=== PATIENT | male | born 1940 | race Caucasian/White ===

== ENCOUNTER 2017-02-12 05:30 | Day surgery (SDC) | payer OTHER ==
[~2017-02-12] VITALS: Ht 190.5 cm; Wt 110.2 kg
[~2017-02-12 05:30] MED LIST: FLEC50TA2 PO; LISI-217 PO; VERA120C2 PO; WARF3TAB PO
[2017-02-12] MEDS ORDERED: SUCCINYLCHOLINE CHLORIDE 20 MG/ML(QUELICIN) IVP ONE (05:31)
[2017-02-12] MEDS ORDERED: MIDAZOLAM HCL 5 MG/ML VIAL (VERSED) IV ONE (05:31)
[2017-02-12] MEDS ORDERED: ROCURONIUM BROMIDE 10 MG/ML (ZEMURON) IV ONE (05:31)
[2017-02-12] MEDS ORDERED: NS IRRIG SOLN 1000 ML IR ONE (05:31)
[2017-02-12] MEDS ORDERED: PROPOFOL 200MG/ 20ML VIAL (DIPRIVAN) IV ONE (05:31)
[2017-02-12] MEDS ORDERED: LR 1,000 ML IV.SOLN IV ONE (05:31)
[2017-02-12] MEDS ORDERED: WATER FOR IRRIGATION,STERILE 1,000 ML IRRIG.SOLN IR ONE (05:31)
[2017-02-12] MEDS ORDERED: SEVOFLURANE 15 MIN GAS INH ONE (05:31)
[2017-02-12] MEDS ORDERED: ONDANSETRON HCL 4 MG/2 ML VIAL IVP ONE (05:31)
[2017-02-12] MEDS ORDERED: GLYCOPYRROLATE 0.2 MG/ML VIAL IJ ONE (05:31)
[2017-02-12] MEDS ORDERED: DEXAMETHASONE SOD PHOSPHATE 4 MG/ML VIAL IVP ONE (05:31)
[2017-02-12] MEDS ORDERED: ePHEDrine sulfate 50 MG/ML VIAL IVP PRN (08:30)
[2017-02-12] MEDS ORDERED: ONDANSETRON HCL 4 MG/2 ML VIAL IVP PRN ×2 (08:30)
[2017-02-12] MEDS ORDERED: KETOROLAC TROMETHAMINE 30 MG VIAL IM PRN (08:30)
[2017-02-12] MEDS ORDERED: NALOXONE HCL 0.4 MG/ML AMP (NARCAN) IVP PRN (08:30)
[2017-02-12] MEDS ORDERED: fentaNYL CITRATE/PF 100 MCG/2 ML AMP IVP PRN (08:30)
[2017-02-12] MEDS ORDERED: NALBUPHINE HCL 10 MG/ML AMP IVP PRN (08:30)
[2017-02-12] MEDS ORDERED: DIPHENHYDRAMINE INJ 50 MG/ML VIAL IVP PRN (08:30)
[2017-02-12] MEDS ORDERED: LR 1,000 ML IV ONE (08:30)
[2017-02-12] MEDS ORDERED: ACETAMINOPHEN 500 MG TABLET PO PRN (10:00)
[2017-02-12] MEDS ORDERED: ACETAMINOPHEN/CODEINE 300 MG-30 MG TABLET PO PRN (10:00)
[2017-02-12 11:38] VITALS: BP_SYST 108
== END 2017-02-12 13:20 | disposition home or self-care (01) ==
LOC: SMU 05:30 → SDS 05:30
PROVIDERS: ATTEND Otolaryngology
DX: D14.1 Benign neoplasm of larynx (principal); J38.01 Paralysis of vocal cords and larynx, unilateral; I48.91 Unspecified atrial fibrillation; I10 Essential (primary) hypertension; Z90.49 Acquired absence of other specified parts of digestive tract; Z98.890 Other specified postprocedural states; Z88.8 Allergy status to other drugs, medicaments and biological substances; Z87.891 Personal history of nicotine dependence; Z68.32 Body mass index [BMI] 32.0-32.9, adult; J44.9 Chronic obstructive pulmonary disease, unspecified
CPT/HCPCS: 31536; 43191; 88305; 88331; J7120; J0330; J1100; J2250; J2405; J2704; J3490

== ENCOUNTER 2017-02-16 00:14 | Inpatient (IN) | payer OTHER ==
[2017-02-16] VITALS (8 sets, daily range): BP systolic 101–135
[~2017-02-16] VITALS: Ht 193 cm; Wt 114.3 kg
[2017-02-16] MEDS ORDERED: NACL 0.9% 1,000 ML IV ONE (00:44)
[2017-02-16] MEDS ORDERED: LACTULOSE 20 GM/30 ML UDC PO ONE (00:45)
[2017-02-16 01:28] LABS: ANION GAP 12 (5-15); CALCIUM 8.5 mg/dL (8.4-11.0); CHLORIDE 102 mmol/L (98-107); CREATININE 0.97 mg/dL (0.55-1.30); GLUCOSE 121 mg/dL (70-99); POTASSIUM 3.3 mmol/L (3.5-5.1); SODIUM SERUM 138 mmol/L (136-145); UREA NITROGEN, BLOOD 20 mg/dL (8-21)
[2017-02-16 01:31] LABS: BASOPHILS # (AUTO) 0.1 K/uL (0.0-0.2); BASOPHILS % (AUTO) 0.9 % (0.0-2.0); EOSINOPHILS # (AUTO) 0.1 K/uL (0.0-0.4); EOSINOPHILS % (AUTO) 0.9 % (0.0-4.0); HEMATOCRIT 38.3 % (36-54); HEMOGLOBIN 12.9 g/dL (14.0-18.0); LYMPHOCYTES # (AUTO) 0.9 K/uL (1.0-5.5); LYMPHOCYTES % (AUTO) 8.2 % (20.5-51.5); MEAN CORPUSCULAR HEMOGLOBIN 33 pg (27-31); MEAN CORPUSCULAR HGB CONC 34 % (32-36); MEAN CORPUSCULAR VOLUME 99 fL (79.0-98.0); MONOCYTES # (AUTO) 1.1 K/uL (0.0-1.0); MONOCYTES % (AUTO) 10.7 % (1.7-9.3); NEUTROPHILS # (AUTO) 8.2 K/uL (1.8-7.7); NEUTROPHILS % (AUTO) 79.3 % (40.0-70.0); PLATELET COUNT (AUTO) 203 K/uL (130-430); RED BLOOD CELL COUNT(AUTO) 3.86 MIL/uL (4.2-6.2); RED CELL DISTRIBUTION WIDTH 12.9 % (9.0-15.0); WHITE BLOOD COUNT (AUTO) 10.4 K/uL (4.8-10.8)
[2017-02-16 01:34] LABS: ALANINE AMINOTRANSFERASE 42 U/L (12-78); ALBUMIN 3.2 g/dL (3.4-4.8); ASPARTATE AMINOTRANSFERASE 22 U/L (10-37); TOTAL BILIRUBIN 0.7 mg/dL (0.0-1.0)
[2017-02-16 02:11] LABS: INR 1.5 (0.80-1.20); PROTHROMBIN TIME 15.3 SECS (9.5-12.5)
[2017-02-16] MEDS: MORPHINE 2 MG/ML INJ. SYRINGE IVP ONE ×2 (02:15→05:39)
[2017-02-16] MEDS: NACL 0.9% 1,000 ML IV SCH ×2 (05:01→17:42)
[2017-02-16 06:27] LABS: BASOPHILS % (AUTO) 0.4 % (0.0-2.0); EOSINOPHILS % (AUTO) 0.5 % (0.0-4.0); HEMATOCRIT 35.1 % (36-54); LYMPHOCYTES # (AUTO) 0.8 K/uL (1.0-5.5); LYMPHOCYTES % (AUTO) 8.8 % (20.5-51.5); MEAN CORPUSCULAR HEMOGLOBIN 34 pg (27-31); MEAN CORPUSCULAR HGB CONC 34 % (32-36); MEAN CORPUSCULAR VOLUME 99 fL (79.0-98.0); MONOCYTES # (AUTO) 0.9 K/uL (0.0-1.0); MONOCYTES % (AUTO) 10.5 % (1.7-9.3); NEUTROPHILS # (AUTO) 7.3 K/uL (1.8-7.7); NEUTROPHILS % (AUTO) 79.8 % (40.0-70.0); PLATELET COUNT (AUTO) 182 K/uL (130-430); RED BLOOD CELL COUNT(AUTO) 3.54 MIL/uL (4.2-6.2); RED CELL DISTRIBUTION WIDTH 13.1 % (9.0-15.0)
[2017-02-16 06:54] LABS: ANION GAP 9 (5-15); CHLORIDE 105 mmol/L (98-107); CREATININE 0.88 mg/dL (0.55-1.30); GLUCOSE 111 mg/dL (70-99); POTASSIUM 3.4 mmol/L (3.5-5.1); SODIUM SERUM 140 mmol/L (136-145); UREA NITROGEN, BLOOD 17 mg/dL (8-21)
[2017-02-16] MEDS ORDERED: MORPHINE 2 MG/ML INJ. SYRINGE IVP PRN (10:00)
[2017-02-16] MEDS ORDERED: ALBUTEROL SULFATE 0.083% 2.5 MG/3 ML VIAL.NEB INH PRN (10:00)
[2017-02-16] MEDS ORDERED: DOCUSATE SODIUM 100 MG CAPSULE PO ONE (10:00)
[2017-02-16] MEDS ORDERED: ACETAMINOPHEN 325 MG TABLET PO PRN (10:00)
[2017-02-16] MEDS ORDERED: ONDANSETRON HCL 4 MG/2 ML VIAL IVP PRN (10:00)
[2017-02-16] MEDS ORDERED: IPRATROPIUM BROM 0.5 MG/2.5 ML VIAL.NEB (ATROVENT) INH PRN (10:00)
[2017-02-16] MEDS ORDERED: MORPHINE 4 MG/ML INJ. SYRINGE IVP PRN (10:00)
[2017-02-16] MEDS ORDERED: MINERAL OIL 30 ML UDC PO ONE (10:15)
[2017-02-16] MEDS: cefTRIAXone 1 GM IVPB PREMIX 50 ML IV SCH (10:41)
[2017-02-16] MEDS ORDERED: VERAPAMIL HCL 120 MG TABLET.SA PO ONE (11:00)
[2017-02-16] MEDS: ALBUTEROL SULFATE 0.083% 2.5 MG/3 ML VIAL.NEB INH SCH ×4 (11:05→23:00)
[2017-02-16] MEDS: IPRATROPIUM BROM 0.5 MG/2.5 ML VIAL.NEB (ATROVENT) INH SCH ×4 (11:06→23:00)
[2017-02-16 12:49] LABS: BILIRUBIN,URINE NEGATIVE (NEGATIVE); CLARITY/URINE CLEAR (CLEAR); COLOR,URINE YELLOW (YELLOW); GLUCOSE,URINE NEGATIVE (NEGATIVE); KETONES,URINE NEGATIVE (NEGATIVE); LEUKOCYTE ESTERASE ,URINE 3+ (NEGATIVE); NITRITE, URINE NEGATIVE (NEGATIVE); PROTEIN URINE TRACE (NEGATIVE)
[2017-02-16 12:53] LABS: BLOOD, URINE TRACE (NEGATIVE)
[2017-02-16] MEDS: FLECAINIDE ACETATE 50 MG TABLET (TAMBOCOR) PO SCH ×2 (13:25→21:00)
[2017-02-16 13:30] LABS: BACTERIA,URINE MANY /HPF (None Seen); MUCUS,URINE 1+ /LPF (None Seen); WBC,URINE 20-50 /HPF (0-3)
[2017-02-16] MEDS: VERAPAMIL HCL 120 MG TABLET.SA PO SCH (17:43)
[2017-02-16] MEDS: MINERAL OIL 30 ML UDC PO SCH (21:00)
[2017-02-16] MEDS: DOCUSATE SODIUM 100 MG CAPSULE PO SCH (21:00)
[2017-02-17 00:01] VITALS: BP_SYST 130
[2017-02-17] MEDS: IPRATROPIUM BROM 0.5 MG/2.5 ML VIAL.NEB (ATROVENT) INH SCH ×6 (02:54→23:00)
[2017-02-17] MEDS: ALBUTEROL SULFATE 0.083% 2.5 MG/3 ML VIAL.NEB INH SCH ×6 (02:54→23:00)
[2017-02-17 04:20] VITALS: BP_SYST 139
[2017-02-17 08:00] VITALS: BP_SYST 138
[2017-02-17] MEDS: NACL 0.9% 1,000 ML IV SCH ×2 (10:01→23:38)
[2017-02-17] MEDS: cefTRIAXone 1 GM IVPB PREMIX 50 ML IV SCH (10:02)
[2017-02-17] MEDS: FLECAINIDE ACETATE 50 MG TABLET (TAMBOCOR) PO SCH ×2 (10:03→22:03)
[2017-02-17] MEDS: VERAPAMIL HCL 120 MG TABLET.SA PO SCH ×2 (10:04→17:19)
[2017-02-17] MEDS: DOCUSATE SODIUM 100 MG CAPSULE PO SCH ×2 (10:05→22:02)
[2017-02-17] MEDS: MINERAL OIL 30 ML UDC PO SCH ×2 (10:11→22:02)
[2017-02-17 16:00] VITALS: BP_SYST 139
[2017-02-17 18:02] LABS: BASOPHILS # (AUTO) 0.1 K/uL (0.0-0.2); BASOPHILS % (AUTO) 0.8 % (0.0-2.0); EOSINOPHILS % (AUTO) 0.3 % (0.0-4.0); HEMATOCRIT 36.5 % (36-54); HEMOGLOBIN 12.7 g/dL (14.0-18.0); LYMPHOCYTES # (AUTO) 0.8 K/uL (1.0-5.5); MEAN CORPUSCULAR HEMOGLOBIN 34 pg (27-31); MEAN CORPUSCULAR HGB CONC 35 % (32-36); MEAN CORPUSCULAR VOLUME 99 fL (79.0-98.0); MONOCYTES # (AUTO) 1.3 K/uL (0.0-1.0); MONOCYTES % (AUTO) 12.1 % (1.7-9.3); NEUTROPHILS # (AUTO) 8.4 K/uL (1.8-7.7); NEUTROPHILS % (AUTO) 78.8 % (40.0-70.0); PLATELET COUNT (AUTO) 183 K/uL (130-430); RED BLOOD CELL COUNT(AUTO) 3.71 MIL/uL (4.2-6.2); RED CELL DISTRIBUTION WIDTH 13.5 % (9.0-15.0); WHITE BLOOD COUNT (AUTO) 10.6 K/uL (4.8-10.8)
[2017-02-17 18:23] LABS: ANION GAP 7 (5-15); CALCIUM 8.1 mg/dL (8.4-11.0); CHLORIDE 108 mmol/L (98-107); CREATININE 0.72 mg/dL (0.55-1.30); GLUCOSE 124 mg/dL (70-99); POTASSIUM 3.6 mmol/L (3.5-5.1); SODIUM SERUM 139 mmol/L (136-145); UREA NITROGEN, BLOOD 12 mg/dL (8-21)
[2017-02-17 20:00] VITALS: BP_SYST 127
[2017-02-18 00:36] VITALS: BP_SYST 134
[2017-02-18] MEDS: IPRATROPIUM BROM 0.5 MG/2.5 ML VIAL.NEB (ATROVENT) INH SCH ×3 (03:00→11:00)
[2017-02-18] MEDS: ALBUTEROL SULFATE 0.083% 2.5 MG/3 ML VIAL.NEB INH SCH ×3 (03:00→11:00)
[2017-02-18 05:26] VITALS: BP_SYST 130
[2017-02-18 08:00] VITALS: BP_SYST 130
[2017-02-18] MEDS: DOCUSATE SODIUM 100 MG CAPSULE PO SCH (08:34)
[2017-02-18] MEDS: MINERAL OIL 30 ML UDC PO SCH (08:34)
[2017-02-18] MEDS: FLECAINIDE ACETATE 50 MG TABLET (TAMBOCOR) PO SCH (08:35)
[2017-02-18] MEDS: VERAPAMIL HCL 120 MG TABLET.SA PO SCH (08:36)
[2017-02-18 09:40] VITALS: BP_SYST 130
[2017-02-18] MEDS ORDERED: CEPH-568 PO (09:48)
[2017-02-18] MEDS ORDERED: TAMS-11 PO (09:50)
[2017-02-18] MEDS: cefTRIAXone 1 GM IVPB PREMIX 50 ML IV SCH (11:35)
[2017-02-18 12:45] VITALS: BP_SYST 123
== END 2017-02-18 13:37 | disposition home or self-care (01) | DRG 694 ==
LOC: SED 00:14 → SMU 02:07
PROVIDERS: ADMIT Internal Medicine
DX: N23 Unspecified renal colic (principal); I48.91 Unspecified atrial fibrillation; J44.9 Chronic obstructive pulmonary disease, unspecified; K56.41 Fecal impaction; Z87.891 Personal history of nicotine dependence; Z88.1 Allergy status to other antibiotic agents
CPT/HCPCS: 36415; 76770; 80048; 80053; 81000-TC; 85025; 85610-TC; 85730-TC; 87081; 94640; 96360; 99285; J0696; J2270; J7030

== ENCOUNTER 2017-02-26 09:00 | Outpatient (CLI) | payer OTHER ==
[~2017-02-26 09:00] MED LIST changes: +CEPH-568 PO; -LISI-217 PO; +TAMS-11 PO
[2017-02-26] MEDS ORDERED: IOHEXOL 100 ML IV ONE (09:23)
== END 2017-02-26 17:29 | disposition home or self-care (01) ==
LOC: SCT 09:00
PROVIDERS: ATTEND Otolaryngology
DX: J38.00 Paralysis of vocal cords and larynx, unspecified (principal); J84.9 Interstitial pulmonary disease, unspecified; I70.90 Unspecified atherosclerosis; R22.2 Localized swelling, mass and lump, trunk
CPT/HCPCS: 70491; 71260; Q9967

== ENCOUNTER 2018-03-02 13:06 | Outpatient (CLI) | payer OTHER ==
[~2018-03-02 13:06] MED LIST changes: -CEPH-568 PO; +FLEC150T2 PO; +HYDR-1189 PO; +LISI-217 PO
[2018-03-02] MEDS ORDERED: IOHEXOL 100 ML IV ONE (13:34)
== END 2018-03-02 19:34 | disposition home or self-care (01) ==
LOC: SCT 13:06
PROVIDERS: ATTEND Otolaryngology
DX: I70.90 Unspecified atherosclerosis (principal); R22.1 Localized swelling, mass and lump, neck; I10 Essential (primary) hypertension; I48.91 Unspecified atrial fibrillation; Z72.89 Other problems related to lifestyle
CPT/HCPCS: 70491; Q9967

== ENCOUNTER 2021-01-27 20:44 | Emergency (ER) | payer OTHER ==
[~2021-01-27] VITALS: Ht 182.9 cm; Wt 90.7 kg
[~2021-01-27 20:44] MED LIST changes: -HYDR-1189 PO; +HYDR-3919 PO
[2021-01-27 20:55] VITALS: BP_SYST 130
--- NOTE | 2021-01-27 20:55 | NUR ---
Patient to ER bed 08 to gown for evaluation. Side rails up. Report given to JACKSON TOLENTINO
--- NOTE | 2021-01-27 21:00 | NUR ---
Patient BIB by family from home. C/O Animal bite x 2 days. Patient reported, his dog bite him while he tried to stop dogs fight, and dog bite his left upper thigh and started swelling, briuse and on Wafarin medication and seen by Urgent care on 01/26/21. Hx A-fib, Hernia and HTN.
--- NOTE | 2021-01-27 21:00 | NUR ---
ER at bedside examining patient.
--- NOTE | 2021-01-27 21:15 | NUR ---
Blood for labwork drawn from highway engineering technician. Patient tolerated well.
[2021-01-27 21:52] LABS: BASOPHILS # (AUTO) 0.1 K/uL (0.0-0.2); BASOPHILS % (AUTO) 0.6 % (0.0-2.0); EOSINOPHILS # (AUTO) 0.2 K/uL (0.0-0.4); EOSINOPHILS % (AUTO) 1.9 % (0.0-4.0); HEMATOCRIT 31.4 % (36-54); HEMOGLOBIN 10.8 g/dL (14.0-18.0); LYMPHOCYTES # (AUTO) 1.2 K/uL (1.0-5.5); LYMPHOCYTES % (AUTO) 12.1 % (20.5-51.5); MEAN CORPUSCULAR HEMOGLOBIN 34 pg (27-31); MEAN CORPUSCULAR HGB CONC 34 % (32-36); MEAN CORPUSCULAR VOLUME 99 fL (79.0-98.0); MONOCYTES # (AUTO) 1.4 K/uL (0.0-1.0); MONOCYTES % (AUTO) 14.1 % (1.7-9.3); NEUTROPHILS # (AUTO) 7.2 K/uL (1.8-7.7); NEUTROPHILS % (AUTO) 71.3 % (40.0-70.0); PLATELET COUNT (AUTO) 187 K/uL (130-430); RED BLOOD CELL COUNT(AUTO) 3.17 MIL/uL (4.2-6.2); RED CELL DISTRIBUTION WIDTH 14.1 % (9.0-15.0)
[2021-01-27 22:13] LABS: INR 2.4 (0.80-1.20)
[2021-01-27 22:17] LABS: ALANINE AMINOTRANSFERASE 25 U/L (12-78); ALBUMIN 3.6 g/dL (3.4-4.8); ASPARTATE AMINOTRANSFERASE 17 U/L (10-37); CALCIUM 8.6 mg/dL (8.4-11.0); CREATININE 1.03 mg/dL (0.55-1.30); GLUCOSE 110 mg/dL (70-99); TOTAL BILIRUBIN 0.3 mg/dL (0.0-1.0); UREA NITROGEN, BLOOD 31 mg/dL (8-21)
[2021-01-27] MEDS ORDERED: FLEC50TA2 PO (22:18)
[2021-01-27] MEDS ORDERED: WARF4TAB72 PO (22:18)
[2021-01-27] MEDS ORDERED: VERA120C2 PO (22:18)
--- NOTE | 2021-01-27 22:19 | NUR ---
Medication reconciliation completed with information provided by patient. Any prior medication reconciliation on file was reviewed and corrected.
[2021-01-27 22:24] LABS: PROTHROMBIN TIME 24.2 SECS (9.5-12.5)
[2021-01-27 22:25] LABS: CHLORIDE 103 mmol/L (98-107); POTASSIUM 3.7 mmol/L (3.5-5.1); SODIUM SERUM 139 mmol/L (136-145)
[2021-01-27 22:26] LABS: ANION GAP 8 (5-15)
[2021-01-27 22:32] LABS: C-REACTIVE PROTEIN QUANT 0.7 mg/dL (0-0.5)
--- NOTE | 2021-01-27 23:00 | NUR ---
Dr. Hernandez at bedside to explain results and treatment plans.
[2021-01-27 23:30] VITALS: BP_SYST 130
--- NOTE | 2021-01-27 23:30 | NUR ---
Patient given written and verbal discharge instructions and verbalizes understanding. ER MD discussed with patient the results and treatment provided. Patient in stable condition. ID arm band removed. No Rx given. Patient educated on pain management and to follow up with PMD. Pain Scale 0/10. Opportunity for questions provided and answered.
== END 2021-01-27 23:30 | disposition home or self-care (01) ==
LOC: SED 20:44
DX: S71.152A Open bite, left thigh, initial encounter (principal); S70.12XA Contusion of left thigh, initial encounter; I10 Essential (primary) hypertension; Z79.899 Other long term (current) drug therapy; Z88.1 Allergy status to other antibiotic agents; W54.0XXA Bitten by dog, initial encounter; Y93.89 Activity, other specified; Y92.89 Other specified places as the place of occurrence of the external cause; Y99.8 Other external cause status
CPT/HCPCS: 36415; 80053; 83605; 85025; 85610-TC; 85730-TC; 86140; 93005; 99284

== ENCOUNTER 2021-01-30 00:37 | Inpatient (IN) | payer OTHER, SELFPAY ==
[~2021-01-30] VITALS: Ht 182.9 cm; Wt 90.7 kg
[~2021-01-30 00:37] MED LIST changes: -FLEC150T2 PO; -HYDR-3919 PO; -TAMS-11 PO; -WARF3TAB PO; +WARF4TAB72 PO
[2021-01-30 00:55] VITALS: BP_SYST 126
--- NOTE | 2021-01-30 01:21 | NUR ---
Patient to ER bed 4 to gown for evaluation. Side rails up. Report given to Gabi PAZ.
--- NOTE | 2021-01-30 01:35 | NUR ---
PATIENT AAOX4 AND AMBULATORY FROM HOME C/O DOG BITE THAT HAPPENED ON 01/25. PT HAS A LARGE HEMATOMA TO LEFT UPPER THIGH THAT HE STATED IS GETTING WORSE. PT WAS SEEN AT URGENT CARE ON THURSDAY. HISTORY OF HTN AND A-FIB. PATIENT STATED THE DOG BITE HAS BEEN OZING AND GETTING WORSE. DENIES ANY PAIN TO THE SITE. REMAINS AFEBRILE.
--- NOTE | 2021-01-30 02:39 | NUR ---
Blood for labwork drawn. Patient tolerated WELL.
--- NOTE | 2021-01-30 02:39 | NUR ---
dr. fair at bedside for evaluation.
[2021-01-30] MEDS ORDERED: PIPERACILLIN/TAZO 3.375 GM in NS 50 ML IV ONE (02:45)
[2021-01-30] MEDS ORDERED: NACL 0.9% 1,000 ML IV ONE (03:00)
[2021-01-30] MEDS ORDERED: PIPERACILLIN/TAZOBACTAM 3.375 GM/VIAL (ZOSYN) IV ONE (03:14)
--- NOTE | 2021-01-30 03:17 | NUR ---
# 20 gauge angiocath placed to RIGHT HAND. Use of asceptic technique. Opsite placed over site. Blood return noted. Flushed with 10 cc of normal saline. No evidence of infiltration noted. Patient tolerated well.
--- NOTE | 2021-01-30 03:25 | NUR ---
PERSONAL BELONGINGS DONE AT BEDSIDE WITH PATIENT.
--- NOTE | 2021-01-30 03:27 | NUR ---
Medication reconciliation completed with information provided by PATIENT. Any prior medication reconciliation on file was reviewed and corrected.
--- NOTE | 2021-01-30 03:28 | NUR ---
Patient's code status is FULL CODE paperwork completed and placed in chart.
[2021-01-30 03:32] LABS: ANION GAP 7 (5-15); CALCIUM 8.3 mg/dL (8.4-11.0); CHLORIDE 104 mmol/L (98-107); CREATININE 0.97 mg/dL (0.55-1.30); GLUCOSE 107 mg/dL (70-99); POTASSIUM 3.9 mmol/L (3.5-5.1); SODIUM SERUM 139 mmol/L (136-145); UREA NITROGEN, BLOOD 25 mg/dL (8-21)
[2021-01-30 03:35] LABS: INR 1.5 (0.80-1.20)
[2021-01-30 03:37] LABS: ALANINE AMINOTRANSFERASE 26 U/L (12-78); ALBUMIN 3.5 g/dL (3.4-4.8); ASPARTATE AMINOTRANSFERASE 22 U/L (10-37); TOTAL BILIRUBIN 0.5 mg/dL (0.0-1.0)
[2021-01-30 03:38] LABS: BASOPHILS # (AUTO) 0.1 K/uL (0.0-0.2); BASOPHILS % (AUTO) 0.9 % (0.0-2.0); EOSINOPHILS # (AUTO) 0.1 K/uL (0.0-0.4); EOSINOPHILS % (AUTO) 1.2 % (0.0-4.0); HEMATOCRIT 30.5 % (36-54); HEMOGLOBIN 10.5 g/dL (14.0-18.0); LYMPHOCYTES # (AUTO) 1.3 K/uL (1.0-5.5); MEAN CORPUSCULAR HEMOGLOBIN 34 pg (27-31); MEAN CORPUSCULAR HGB CONC 34 % (32-36); MEAN CORPUSCULAR VOLUME 99 fL (79.0-98.0); MONOCYTES # (AUTO) 1.6 K/uL (0.0-1.0); MONOCYTES % (AUTO) 16.8 % (1.7-9.3); NEUTROPHILS # (AUTO) 6.6 K/uL (1.8-7.7); NEUTROPHILS % (AUTO) 68.1 % (40.0-70.0); PLATELET COUNT (AUTO) 197 K/uL (130-430); RED BLOOD CELL COUNT(AUTO) 3.09 MIL/uL (4.2-6.2); RED CELL DISTRIBUTION WIDTH 14.2 % (9.0-15.0); WHITE BLOOD COUNT (AUTO) 9.7 K/uL (4.8-10.8)
--- NOTE | 2021-01-30 05:32 | NUR ---
Patient will be admitted to care of ISABELLE. Admitted to MED SURG unit. BED ASSIGNMENT REQUESTED TO CHARGE NURSE MEET. Belongings list completed. Complete and up to date summary report printed. SBAR report to be given at bedside with opportunity for questions.
[2021-01-30] MEDS ORDERED: cefTRIAXone 1 GM IVPB PREMIX 50 ML IV SCH (05:45)
--- NOTE | 2021-01-30 05:54 | NUR ---
BED ASSIGNMENT GIVEN TO GO TO 117A. PT TAKEN BY RN VIA WHEELCHAIR.
--- NOTE | 2021-01-30 06:05 | NUR ---
ADMISSION NOTE Received patient from ER via brian, received report from JACKSON Ashley. Patient admitted with diagnosis of Dog Bite. Patient oriented to hospital routine, call light, toileting and safety-patient verbalized understanding.
--- NOTE | 2021-01-30 06:30 | NUR ---
Initial RN notes Pt AAOx4, VSS, afebrile. No c/o pain. Left upper thigh hematoma noted erythema, no drainage. IV saline lock R. hand 20G. Call light within reach. Bed low, locked, siderails up x2. To endorse to AM nurse.
[2021-01-30 06:45] VITALS: BP_SYST 135
--- NOTE | 2021-01-30 07:50 | NUR ---
Opening note Patient is resting in bed A&Ox4 no complaint of pain or discomfort, IV is patent, no signs or symptoms of infiltration. No signs or symptoms of respiratory distress. Educated patient on plan of care and call light system, verbalized understanding. Bed is in lowest position, call light within reach, fall and aspiration precautions are in place. Will continue to monitor.
[2021-01-30 08:00] VITALS: BP_SYST 131; BP_SYST 132
[2021-01-30] MEDS ORDERED: metroNIDAZOLE 500 mg/NS 100 ML IV SCH (09:00)
[2021-01-30] MEDS ORDERED: VERAPAMIL HCL 120 MG TABLET.SA PO ONE (09:30)
[2021-01-30] MEDS ORDERED: FLECAINIDE ACETATE 50 MG TABLET (TAMBOCOR) PO ONE (09:30)
--- NOTE | 2021-01-30 09:37 | NUR ---
CONSULT ID THIGH ABSCESS DR FRANCO [phone] S/W [facility] OFFICE
--- NOTE | 2021-01-30 09:39 | NUR ---
CONSULT SURGERY THIGH ABSCESS KEENAN GARCIA [phone] S/W [facility] OFFICE
[2021-01-30] MEDS ORDERED: HYDROCHLOROTHIAZIDE 12.5 MG CAPSULE (HCTZ) PO ONE (09:45)
[2021-01-30] MEDS ORDERED: lisinopriL 5 MG TABLET PO ONE (09:45)
--- NOTE | 2021-01-30 11:20 | NUR ---
MD rounds into to see the patietn, recommends I&D of wound. Will refer to doctors orders.
[2021-01-30 11:31] VITALS: BP_SYST 151
[2021-01-30] MEDS: AMPICILLIN SODIUM/SULBACTAM NA 1.5 GM in NS 50 ML IV SCH ×2 (11:32→20:09)
--- NOTE | 2021-01-30 14:30 | NUR ---
WOUND EVALUATION: Late note for 01/30/2021 at 1430 secondary to patient care. Wound Consult received from Dr. House. Thank you, Dr. House, for the consult. Patient received in a [place] Bed with an IsoFlex MORTEZA mattress, awake, alert, and oriented. Patient is unable to turn independently. Boone Score is a 16. Past Medical History: Hypertension, A-Fib, on Coumadin. Admitted for dog bite on left thigh. Recent Labs: WBC 9.7, RBC 3.09, hemoglobin 10.5, hematocrit 30.5, BUN 25, creatinine 0.97, glucose 107, calcium 8.3, PT 16.0, INR 1.5. Microbiology: Blood culture results x2 in progress. MRSA screen results in progress. Intrinsic factors that delay wound healing: A-Fib. Extrinsic factors that delay wound healing: Decreased mobility. Surgical consult performed by Dr. Tai and a possible incision and drainage is planned for this evening. Will await dressing orders post Dr. Tai's surgical procedure. Wound Assessment: 1. Left Mid Medial Thigh: Dog bite wound from patient's own dog, present on admission. Wound bed has multiple small black scabs with elevated indurated area, probable abscess formation. Area has red discoloration, purple discoloration, and outer aspect of site has yellow discoloration. Area has calor and induration. No odor, no drainage. Tsering-wounds intact. Grouped wounds measure 2.3 cm x 4.4 cm. Entire site measures 12.0 cm x 14.0 cm. Recommend: No dressing needed. [place] scabs with Betadine daily. Continue to monitor site every shift. Contact wound care nurse and physician if wounds open or drain. Also recommend: Encourage and assist patient as needed with repositioning every 2 hours with pillow support and off-load pressure areas with pillows for pressure re-distribution. Offload, elevate and float bilateral heels with pillows. Perform skin care and monitor skin integrity Q shift.
[2021-01-30 15:40] VITALS: BP_SYST 154
[2021-01-30] MEDS ORDERED: POLYMYXIN 500,000/BACIT.10,000 UNITS in NS IRR 1 L IR ONE (17:06)
[2021-01-30] MEDS ORDERED: METOCLOPRAMIDE HCL 10 MG/2 ML VIAL IVP PRN (17:15)
[2021-01-30] MEDS ORDERED: ONDANSETRON HCL 4 MG/2 ML VIAL IVP PRN (17:15)
[2021-01-30] MEDS ORDERED: fentaNYL CITRATE/PF 100 MCG/2 ML AMP IVP PRN (17:15)
[2021-01-30] MEDS ORDERED: MORPHINE 4 MG INJ. 4 MG/ML VIAL IVP PRN (17:15)
[2021-01-30] MEDS ORDERED: BUPIVACAINE /EPINEPHRINE/PF 0.25% 30 ML VIAL INJ ONE (17:30)
[2021-01-30] MEDS ORDERED: LR 1,000 ML IV.SOLN IV ONE (17:30)
[2021-01-30] MEDS ORDERED: PROPOFOL 200MG/ 20ML VIAL (DIPRIVAN) IV ONE (17:30)
[2021-01-30] MEDS ORDERED: SEVOFLURANE 15 MIN GAS INH ONE (17:30)
[2021-01-30] MEDS: fentaNYL CITRATE/PF 100 MCG/2 ML AMP IVP PRN ×2 (17:46→18:02)
[2021-01-30] MEDS ORDERED: fentaNYL CITRATE/PF 100 MCG/2 ML AMP ONE (17:51)
--- NOTE | 2021-01-30 18:20 | NUR ---
Patient received Patient is back from OR, in stable condition, x1 dressing clean dry and intact. In stable condition, will continue to monitor. Temperature was slightly elevated in OR, current temp is 98.9.
--- NOTE | 2021-01-30 18:44 | NUR ---
Closing note Patient is resting in bed A&Ox4 no complaint of pain or discomfort, IV is patent, no signs or symptoms of infiltration. No signs or symptoms of respiratory distress. All needs were met. Bed is in lowest position, call light within reach, fall and aspiration precautions are in place. Will endorse report to night clerk.
[2021-01-30] MEDS: CLINDAMYCIN 600 MG in D5W 50 ML IV SCH (21:35)
[2021-01-30] MEDS: FLECAINIDE ACETATE 50 MG TABLET (TAMBOCOR) PO SCH (21:38)
[2021-01-30] MEDS: LACTOBACILLUS RHAMNOSUS GG 1 CAP CAPSULE PO SCH (22:22)
[2021-01-30] MEDS: VERAPAMIL HCL 120 MG TABLET.SA PO SCH (22:22)
[2021-01-31 00:40] VITALS: BP_SYST 136
[2021-01-31] MEDS: AMPICILLIN SODIUM/SULBACTAM NA 1.5 GM in NS 50 ML IV SCH ×4 (01:17→20:46)
--- NOTE | 2021-01-31 07:15 | NUR ---
CLOSING NOTES PATIENT RESTING, NO SIGNS OF DISTRESS NOTED. HOB ELEVATED, CALL LIGHT WITHIN REACH, BED ALARM ON, BED AT LOWEST POSITION, BED LOCKED. FALL, RESPIRATORY, ASPIRATION, ISOLATION AND SAFETY PRECAUTIONS IN PLACE. ALL NEEDS MET THROUGHOUT SHIFT. WILL ENDORSE CARE TO ONCOMING SHIFT.
[2021-01-31] MEDS: FLECAINIDE ACETATE 50 MG TABLET (TAMBOCOR) PO SCH ×2 (09:00→23:09)
[2021-01-31] MEDS: LACTOBACILLUS RHAMNOSUS GG 1 CAP CAPSULE PO SCH ×2 (10:10→20:46)
[2021-01-31] MEDS: VERAPAMIL HCL 120 MG TABLET.SA PO SCH ×2 (10:10→20:49)
[2021-01-31] MEDS: CLINDAMYCIN 600 MG in D5W 50 ML IV SCH ×2 (10:12→23:10)
[2021-01-31] MEDS: lisinopriL 5 MG TABLET PO SCH (10:13)
[2021-01-31] MEDS: HYDROCHLOROTHIAZIDE 12.5 MG CAPSULE (HCTZ) PO SCH (10:14)
--- NOTE | 2021-01-31 10:38 | NUR ---
Nutrition Update Boone Scale 18 noted. Pt admitted for dog bite. Diet: regular BMI: 27.1 kg/m2 RD to follow per nutrition care standards.
[2021-01-31 11:41] LABS: BASOPHILS # (AUTO) 0.1 K/uL (0.0-0.2); BASOPHILS % (AUTO) 1.1 % (0.0-2.0); EOSINOPHILS # (AUTO) 0.1 K/uL (0.0-0.4); EOSINOPHILS % (AUTO) 0.6 % (0.0-4.0); HEMATOCRIT 29.7 % (36-54); HEMOGLOBIN 10.2 g/dL (14.0-18.0); LYMPHOCYTES # (AUTO) 1.2 K/uL (1.0-5.5); LYMPHOCYTES % (AUTO) 9.9 % (20.5-51.5); MEAN CORPUSCULAR HEMOGLOBIN 34 pg (27-31); MEAN CORPUSCULAR HGB CONC 34 % (32-36); MEAN CORPUSCULAR VOLUME 98 fL (79.0-98.0); MONOCYTES # (AUTO) 1.9 K/uL (0.0-1.0); MONOCYTES % (AUTO) 15.9 % (1.7-9.3); NEUTROPHILS # (AUTO) 8.7 K/uL (1.8-7.7); NEUTROPHILS % (AUTO) 72.5 % (40.0-70.0); PLATELET COUNT (AUTO) 196 K/uL (130-430); RED BLOOD CELL COUNT(AUTO) 3.02 MIL/uL (4.2-6.2); RED CELL DISTRIBUTION WIDTH 13.8 % (9.0-15.0)
[2021-01-31] MEDS: HYDROcodone/ACETAMIN 5-325 MG TAB (NORCO/ VICODIN) PO PRN (17:31)
[2021-01-31 17:50] VITALS: BP_SYST 132
--- NOTE | 2021-01-31 19:15 | NUR ---
OPENING NOTES PATIENT RESTING, NO SIGNS OF DISTRESS NOTED. HOB ELEVATED, CALL LIGHT WITHIN REACH, BED ALARM ON, BED AT LOWEST POSITION, BED LOCKED. FALL, RESPIRATORY, ASPIRATION, ISOLATION AND SAFETY PRECAUTIONS IN PLACE. DISCUSSED PLAN OF CARE WITH PATIENT. WILL CONTINUE TO MONITOR.
[2021-02-01 00:20] VITALS: BP_SYST 128
[2021-02-01] MEDS: AMPICILLIN SODIUM/SULBACTAM NA 1.5 GM in NS 50 ML IV SCH ×5 (01:13→23:08)
[2021-02-01] MEDS: HYDROcodone/ACETAMIN 5-325 MG TAB (NORCO/ VICODIN) PO PRN ×3 (02:46→20:27)
--- NOTE | 2021-02-01 06:48 | NUR ---
CLOSING NOTES PATIENT RESTING, NO SIGNS OF DISTRESS NOTED. HOB ELEVATED, CALL LIGHT WITHIN REACH, BED ALARM ON, BED AT LOWEST POSITION, BED LOCKED. FALL, RESPIRATORY, ASPIRATION, ISOLATION AND SAFETY PRECAUTIONS IN PLACE THROUGHOUT SHIFT. ALL NEEDS MET THROUGHOUT SHIFT. WILL ENDORSE CARE TO ONCOMING SHIFT.
--- NOTE | 2021-02-01 07:40 | NUR ---
OPENING NOTE Received report from night nurse. Patient is alert and oriented x4. On room air and tolerating well with no signs of shortness of breath noted. IV is patent, saline locked as ordered. Bed locked and in lowest position. Call light within reach. Will continue to monitor.
[2021-02-01 07:52] LABS: BASOPHILS # (AUTO) 0.1 K/uL (0.0-0.2); BASOPHILS % (AUTO) 0.7 % (0.0-2.0); EOSINOPHILS # (AUTO) 0.2 K/uL (0.0-0.4); EOSINOPHILS % (AUTO) 1.9 % (0.0-4.0); HEMATOCRIT 29.6 % (36-54); HEMOGLOBIN 10.2 g/dL (14.0-18.0); LYMPHOCYTES # (AUTO) 1.7 K/uL (1.0-5.5); LYMPHOCYTES % (AUTO) 17.1 % (20.5-51.5); MEAN CORPUSCULAR HEMOGLOBIN 34 pg (27-31); MEAN CORPUSCULAR HGB CONC 34 % (32-36); MEAN CORPUSCULAR VOLUME 98 fL (79.0-98.0); MONOCYTES # (AUTO) 1.7 K/uL (0.0-1.0); MONOCYTES % (AUTO) 16.8 % (1.7-9.3); NEUTROPHILS # (AUTO) 6.5 K/uL (1.8-7.7); NEUTROPHILS % (AUTO) 63.5 % (40.0-70.0); PLATELET COUNT (AUTO) 201 K/uL (130-430); RED BLOOD CELL COUNT(AUTO) 3.01 MIL/uL (4.2-6.2); WHITE BLOOD COUNT (AUTO) 10.2 K/uL (4.8-10.8)
[2021-02-01 08:00] VITALS: BP_SYST 144
[2021-02-01] MEDS: CLINDAMYCIN 600 MG in D5W 50 ML IV SCH (08:17)
[2021-02-01] MEDS: LACTOBACILLUS RHAMNOSUS GG 1 CAP CAPSULE PO SCH ×2 (08:17→20:26)
[2021-02-01] MEDS: VERAPAMIL HCL 120 MG TABLET.SA PO SCH ×2 (08:17→20:25)
[2021-02-01] MEDS: lisinopriL 5 MG TABLET PO SCH (08:17)
[2021-02-01 08:18] LABS: ALANINE AMINOTRANSFERASE 21 U/L (12-78); ALBUMIN 2.9 g/dL (3.4-4.8); ANION GAP 5 (5-15); ASPARTATE AMINOTRANSFERASE 15 U/L (10-37); CHLORIDE 100 mmol/L (98-107); CREATININE 0.72 mg/dL (0.55-1.30); GLUCOSE 92 mg/dL (70-99); POTASSIUM 4.1 mmol/L (3.5-5.1); SODIUM SERUM 134 mmol/L (136-145); TOTAL BILIRUBIN 0.8 mg/dL (0.0-1.0); UREA NITROGEN, BLOOD 17 mg/dL (8-21)
[2021-02-01] MEDS: HYDROCHLOROTHIAZIDE 12.5 MG CAPSULE (HCTZ) PO SCH (08:18)
[2021-02-01] MEDS: FLECAINIDE ACETATE 50 MG TABLET (TAMBOCOR) PO SCH ×2 (08:18→20:26)
[2021-02-01 12:13] VITALS: BP_SYST 114
[2021-02-01 12:40] LABS: INR 1.2 (0.80-1.20); PROTHROMBIN TIME 12.5 SECS (9.5-12.5)
--- NOTE | 2021-02-01 15:00 | NUR ---
WOUND CARE DONE WOUNDS CLEANED AND REDRESSED. PATIENT CLEANED AND TURNED. HAD SMALL BM. WILL CONTINUE TO MONITOR.
[2021-02-01 15:52] VITALS: BP_SYST 119
[2021-02-01] MEDS ORDERED: WARFARIN SODIUM 5 MG TABLET PO SCH (18:00)
--- NOTE | 2021-02-01 18:31 | NUR ---
CLOSING NOTE Patient is resting in bed, respirations even and unlabored. On room air and tolerating well with no signs of shortness of breath noted. IV is patent, saline locked. Bed locked and in lowest position. Call light within reach. Will endorse to night nurse.
[2021-02-01 20:05] VITALS: BP_SYST 164
--- NOTE | 2021-02-01 20:27 | NUR ---
Opening notes Pt AAOx4, pt has low-grade fever 99.9. Cooling measures provided. Encouraged pt to drink more fluids. Pt medicated with [place] 1 tab for c/o 6/10 L. thigh pain. L. thigh dressing dry and intact. R. hand 22G saline lock clear and patent. Call light within reach. Safety maintained. To monitor.
--- NOTE | 2021-02-01 22:05 | NUR ---
Rounds/Urine Pt awake, resting in bed, no s/s distress. Pt used urinal noted 150 russell urine. Encouraged pt to drink more fluids, filled up cup with more water. Pt verbalized understanding. Call light within reach. To monitor.
[2021-02-02 00:28] VITALS: BP_SYST 136
[2021-02-02] MEDS: HYDROcodone/ACETAMIN 5-325 MG TAB (NORCO/ VICODIN) PO PRN ×4 (01:12→20:45)
[2021-02-02] MEDS: AMPICILLIN SODIUM/SULBACTAM NA 1.5 GM in NS 50 ML IV SCH ×4 (05:36→23:41)
--- NOTE | 2021-02-02 05:40 | NUR ---
Closing notes/Dressing change Pt alert, awake, no s/s distress noted. Left thigh dressing changed. Applied 4x4 gauze, moist NS packing and covered with ABD pad and paper tape, pt tolerated well. Noted small bloody drainage. IV antibiotic infusing at ordered rate R. hand 22G clear and patent. To endorse to AM nurse.
[2021-02-02 08:09] VITALS: BP_SYST 132; BP_SYST 141
--- NOTE | 2021-02-02 08:11 | NUR ---
OPENING NOTES: PATIENT RESTING IN BED. BREATHING EVEN AND NON LABORED. C/O PAIN ON ON LEFT THIGH (09/06). PRN PAIN MEDS GIVEN. . FALL AND SAFETY MEASURES REINFORCED. CALL LIGHT WITHIN REACH.
[2021-02-02 09:48] LABS: INR 1.1 (0.80-1.20); PROTHROMBIN TIME 12.1 SECS (9.5-12.5)
[2021-02-02] MEDS: HYDROCHLOROTHIAZIDE 12.5 MG CAPSULE (HCTZ) PO SCH (10:04)
[2021-02-02] MEDS: lisinopriL 5 MG TABLET PO SCH (10:05)
[2021-02-02] MEDS: VERAPAMIL HCL 120 MG TABLET.SA PO SCH ×2 (10:05→20:44)
[2021-02-02] MEDS: FLECAINIDE ACETATE 50 MG TABLET (TAMBOCOR) PO SCH ×2 (10:06→20:46)
[2021-02-02] MEDS: LACTOBACILLUS RHAMNOSUS GG 1 CAP CAPSULE PO SCH ×2 (10:06→20:43)
[2021-02-02 11:25] VITALS: BP_SYST 117
[2021-02-02 15:47] VITALS: BP_SYST 130
[2021-02-02] MEDS: WARFARIN SODIUM 7.5 MG TABLET PO SCH (17:17)
--- NOTE | 2021-02-02 18:32 | NUR ---
CLOSING NOTES: PATIENT EATING DINNER. NO SIGNS OF ACUTE DISTRESS NOTED. IV INFUSING WELL. FALL, ASPIRATION AND SAFETY MEASURES PROVIDED. CALL LIGHT WITHIN REACH. WILL CONTINUE MONITOR UNTIL ENDORSE TO MOTORCYCLE TESTER RN.
--- NOTE | 2021-02-02 19:30 | NUR ---
Opening note Received report from day shift. Pt is resting in bed, no s/s of respiratory distress. Breathing is even and unlabored. IV site is intact and patent. Fall and safety precautions are in place with bed in lowest position, bed alarm on, and call light within reach
[2021-02-02 20:00] VITALS: BP_SYST 127
[2021-02-03] VITALS: BP_SYST 139
--- NOTE | 2021-02-03 00:15 | NUR ---
Rounds Pt sleeping. No s/s of acute distress. No needs at this time. Fall and safety checks in place
[2021-02-03] MEDS: HYDROcodone/ACETAMIN 5-325 MG TAB (NORCO/ VICODIN) PO PRN ×4 (01:58→20:36)
[2021-02-03] MEDS: AMPICILLIN SODIUM/SULBACTAM NA 1.5 GM in NS 50 ML IV SCH ×3 (05:58→18:23)
--- NOTE | 2021-02-03 06:49 | NUR ---
Closing note Pt resting in bed watching TV. No s/s of respiratory distress. Breathing even and unlabored. IV site is intact and patent. Fall and safety precautions in place with bed in lowest position, bed alarm on, and call light within reach. All needs met throughout shift. Will monitor until endorsed to day shift
[2021-02-03 07:00] LABS: BASOPHILS % (AUTO) 0.4 % (0.0-2.0); EOSINOPHILS # (AUTO) 0.3 K/uL (0.0-0.4); EOSINOPHILS % (AUTO) 2.3 % (0.0-4.0); HEMATOCRIT 33.2 % (36-54); HEMOGLOBIN 11.4 g/dL (14.0-18.0); LYMPHOCYTES # (AUTO) 1.2 K/uL (1.0-5.5); LYMPHOCYTES % (AUTO) 10.6 % (20.5-51.5); MEAN CORPUSCULAR HEMOGLOBIN 34 pg (27-31); MEAN CORPUSCULAR HGB CONC 34 % (32-36); MEAN CORPUSCULAR VOLUME 98 fL (79.0-98.0); MONOCYTES # (AUTO) 1.7 K/uL (0.0-1.0); MONOCYTES % (AUTO) 14.6 % (1.7-9.3); NEUTROPHILS # (AUTO) 8.3 K/uL (1.8-7.7); NEUTROPHILS % (AUTO) 72.1 % (40.0-70.0); PLATELET COUNT (AUTO) 261 K/uL (130-430); RED BLOOD CELL COUNT(AUTO) 3.38 MIL/uL (4.2-6.2); RED CELL DISTRIBUTION WIDTH 13.5 % (9.0-15.0); WHITE BLOOD COUNT (AUTO) 11.5 K/uL (4.8-10.8)
[2021-02-03 07:41] LABS: INR 1.1 (0.80-1.20); PROTHROMBIN TIME 12.1 SECS (9.5-12.5)
--- NOTE | 2021-02-03 08:00 | NUR ---
OPENING NOTES: PATIENT RESTING IN BED. BREATHING EVEN AND NON LABORED RA. C/O PAIN ON ON LEFT THIGH (09/06). WILL GIVE PRN PAIN MED. BED LOCKED, ALARM ON AND IN LOWEST POSITION. FALL AND SAFETY MEASURES REINFORCED. CALL LIGHT WITHIN REACH.
[2021-02-03 08:10] VITALS: BP_SYST 140
[2021-02-03] MEDS: LACTOBACILLUS RHAMNOSUS GG 1 CAP CAPSULE PO SCH ×2 (08:12→20:35)
[2021-02-03] MEDS: HYDROCHLOROTHIAZIDE 12.5 MG CAPSULE (HCTZ) PO SCH (08:13)
[2021-02-03] MEDS: VERAPAMIL HCL 120 MG TABLET.SA PO SCH ×2 (08:13→20:36)
[2021-02-03] MEDS: lisinopriL 5 MG TABLET PO SCH (08:14)
[2021-02-03] MEDS: FLECAINIDE ACETATE 50 MG TABLET (TAMBOCOR) PO SCH ×2 (08:15→20:35)
[2021-02-03 09:43] LABS: ALANINE AMINOTRANSFERASE 22 U/L (12-78); ANION GAP 9 (5-15); ASPARTATE AMINOTRANSFERASE 17 U/L (10-37); CHLORIDE 92 mmol/L (98-107); CREATININE 0.84 mg/dL (0.55-1.30); GLUCOSE 99 mg/dL (70-99); POTASSIUM 3.7 mmol/L (3.5-5.1); SODIUM SERUM 127 mmol/L (136-145); TOTAL BILIRUBIN 0.9 mg/dL (0.0-1.0); UREA NITROGEN, BLOOD 20 mg/dL (8-21)
[2021-02-03 10:06] LABS: INR 1.1 (0.80-1.20); PROTHROMBIN TIME 12.1 SECS (9.5-12.5)
[2021-02-03] MEDS: D5NS 1,000 ML IV SCH (11:43)
[2021-02-03 12:00] VITALS: BP_SYST 132
--- NOTE | 2021-02-03 12:56 | NUR ---
RN NOTES: INCONTINENT CARE DONE. NO S/S OF ACUTE DISTRESS NOTED. BED LOCKED, ALARM ON AND IN LOWEST POSITION. CALL LIGHT WITHIN REACH.
[2021-02-03 16:00] VITALS: BP_SYST 130
[2021-02-03] MEDS: WARFARIN SODIUM 7.5 MG TABLET PO SCH (18:31)
--- NOTE | 2021-02-03 18:59 | NUR ---
CLOSING NOTES: PATIENT EATING DINNER. NO SIGNS OF ACUTE DISTRESS NOTED. IV INFUSING WELL. FALL, ASPIRATION AND SAFETY MEASURES PROVIDED. CALL LIGHT WITHIN REACH. WILL CONTINUE MONITOR UNTIL ENDORSE TO BENCH WORKER APPRENTICE RN.
--- NOTE | 2021-02-03 19:30 | NUR ---
Opening note Received report from day shift. Pt is resting in bed, no s/s of respiratory distress. Breathing is even and unlabored. IV site is intact and patent with fluids running at ordered rate. C/o pain on left thigh, will administer PRN pain med. Fall and safety precautions are in place with bed in lowest position, bed alarm on, and call light within reach
[2021-02-03 20:00] VITALS: BP_SYST 136
[2021-02-04] MEDS: AMPICILLIN SODIUM/SULBACTAM NA 1.5 GM in NS 50 ML IV SCH ×5 (00:01→22:53)
[2021-02-04 00:08] VITALS: BP_SYST 117
--- NOTE | 2021-02-04 00:30 | NUR ---
Rounds Pt is sleeping. No s/s of acute distress. No needs at this time. Fall and safety checks in place
[2021-02-04] MEDS: HYDROcodone/ACETAMIN 5-325 MG TAB (NORCO/ VICODIN) PO PRN ×3 (02:44→16:14)
[2021-02-04] MEDS: D5NS 1,000 ML IV SCH (05:45)
--- NOTE | 2021-02-04 06:59 | NUR ---
Closing note Pt resting in bed. eyes closed. No s/s of respiratory distress. Breathing even and unlabored. IV site is intact and patent. Fall and safety precautions in place with bed in lowest position, bed alarm on, and call light within reach. All needs met throughout shift. Will monitor until endorsed to day shift
[2021-02-04 08:00] VITALS: BP_SYST 125
--- NOTE | 2021-02-04 08:00 | NUR ---
Initial notes Awake, oriented, complain of pain and wants norco, medicated. denies any shortness of breath. IVF infusing well, dressing intact on the left thigh at this time. safety precaution and educated on pain management. pt verbalize understanding. call light within reach.
[2021-02-04] MEDS: LACTOBACILLUS RHAMNOSUS GG 1 CAP CAPSULE PO SCH ×2 (08:13→21:00)
[2021-02-04] MEDS: VERAPAMIL HCL 120 MG TABLET.SA PO SCH ×2 (08:13→21:00)
[2021-02-04] MEDS: FLECAINIDE ACETATE 50 MG TABLET (TAMBOCOR) PO SCH ×2 (08:21→21:00)
[2021-02-04 09:23] LABS: INR 1.5 (0.80-1.20); PROTHROMBIN TIME 15.4 SECS (9.5-12.5)
[2021-02-04] MEDS: MORPHINE 2 MG/ML INJ. SYRINGE IVP PRN ×3 (09:42→18:38)
[2021-02-04 11:26] VITALS: BP_SYST 114
--- NOTE | 2021-02-04 11:54 | NUR ---
Notes- Resting, pain is controlled. needs attended.
--- NOTE | 2021-02-04 14:38 | NUR ---
Notes- Wound care and wound vac applied by Isrrael, morphine given for pain management.
--- NOTE | 2021-02-04 14:38 | NUR ---
WOUND EVALUATION: Late note for 02/04/2021 at 1438 secondary to patient care. Wound Consult received from Dr. Tai for application of Wound VAC. Thank you, Dr. Tai, for the consult. Patient received in a [place] Bed with an IsoFlex MORTEZA mattress, awake, alert, and oriented. Patient is able to turn in bed with some assist. Boone Score is a 16. Past Medical History: Hypertension, A-Fib, on Coumadin. Admitted for dog bite on left thigh. Recent Labs: WBC 11.5, RBC 3.38, hemoglobin 11.4, hematocrit 33.2, sodium 127, chloride 92, BUN 20, creatinine 0.84, calcium 8.0, serum total protein 6.2, albumin 3.0, PT 15.4, INR 1.5. Microbiology: Blood culture results x2 negative. MRSA screen results negative. Wound culture results negative. Intrinsic factors that delay wound healing: A-Fib, Hypoalbuminemia. Extrinsic factors that delay wound healing: Decreased mobility. Status post incision and drainage of left medial thigh hematoma performed by Dr. Tai on 01/30/2021. Dr. Tai requested placement of wound VAC. Wound Assessment: 1. Left Mid Medial Thigh: Dog bite wound from patient's own dog, present on admission. Post op wound bed has 90 percent dark red tissue, 10% black tissue. No odor, scant sanguineous drainage. Undermining present from 111 o'clock (0.9 cm at 1 o'clock; 1.7 cm at 6 o'clock; 2.5 cm at 9 o'clock). Wound measures 6.7 cm x 2.5 cm x 2.0 cm. Surrounding area has very little rubor, mild calor and induration. Recommend: Cleanse wound with normal saline. Apply sure prep to periwound. Apply small black round granufoam dressing to wound bed. Cover Granufoam and wound site with VAC drape. Cut small hole into Vac drape and apply suction attachment. Attach suction tubing to wound VAC. Run wound VAC at 125 mmHg, continuous. Change VAC dressing q. M/W/F and as needed for dressing dislodgment. Also recommend: Encourage and assist patient as needed with repositioning every 2 hours with pillow support and off-load pressure areas with pillows for pressure re-distribution. Offload, elevate and float bilateral heels with pillows. Perform skin care and monitor skin integrity Q shift.
[2021-02-04 15:59] VITALS: BP_SYST 142
[2021-02-04] MEDS: WARFARIN SODIUM 7.5 MG TABLET PO SCH (17:33)
--- NOTE | 2021-02-04 18:57 | NUR ---
closing notes Eating dinner, pain is controlled so far. wound vac is working well, no leaking noted. All needs meet.
[2021-02-05 00:12] VITALS: BP_SYST 122
[2021-02-05 04:00] VITALS: BP_SYST 135
[2021-02-05] MEDS: AMPICILLIN SODIUM/SULBACTAM NA 1.5 GM in NS 50 ML IV SCH ×4 (04:52→23:33)
[2021-02-05] MEDS: D5NS 1,000 ML IV SCH ×2 (04:52→23:32)
[2021-02-05] MEDS: HYDROcodone/ACETAMIN 5-325 MG TAB (NORCO/ VICODIN) PO PRN ×4 (05:07→17:20)
--- NOTE | 2021-02-05 05:28 | NUR ---
the pateint was admitted for dog bite and stated that he had pain , narco 5 was given , vitals are stable, breathing is even and unlabored. comfort and safety measures are provided. the pateint is resting in his bed with no complain.
[2021-02-05 08:00] VITALS: BP_SYST 137
[2021-02-05 08:02] LABS: INR 1.7 (0.80-1.20); PROTHROMBIN TIME 17.6 SECS (9.5-12.5)
[2021-02-05] MEDS: VERAPAMIL HCL 120 MG TABLET.SA PO SCH ×2 (08:57→21:44)
[2021-02-05] MEDS: LACTOBACILLUS RHAMNOSUS GG 1 CAP CAPSULE PO SCH ×2 (08:58→21:39)
[2021-02-05] MEDS: FLECAINIDE ACETATE 50 MG TABLET (TAMBOCOR) PO SCH ×2 (08:59→21:43)
[2021-02-05 11:33] VITALS: BP_SYST 121
[2021-02-05 15:39] VITALS: BP_SYST 122
[2021-02-05] MEDS: WARFARIN SODIUM 7.5 MG TABLET PO SCH (17:21)
--- NOTE | 2021-02-05 18:31 | NUR ---
PATIENT RESTING IN BED, AAO x4, DENIES PAIN/DISCOMFORT. RESPIRATIONS EVEN AND UL ON RA. WOUND VAC IN PLACE TO L UPPER THIGH, DRESSING CDI. NS INFUSING TO RFA PER ORDER, IV SITE WNL. HEELS OFFLOADED. PATIENT REPOSITIONED Q 2HRS AND PRN. ALL NEEDS MET. BED IN LOWEST POSITION, CALL LIGHT IN REACH, SAFETY MEASURES IN PLACE. WILL CONT TO MONITOR AND ENDORSE TO PM NURSE.
[2021-02-05 20:00] VITALS: BP_SYST 121
[2021-02-05] MEDS: MORPHINE 2 MG/ML INJ. SYRINGE IVP PRN (21:52)
[2021-02-06 00:26] VITALS: BP_SYST 139
[2021-02-06] MEDS: HYDROmorphone 2 MG/ML VIAL IVP PRN ×3 (02:01→12:40)
--- NOTE | 2021-02-06 02:09 | NUR ---
Pain med / Dilaudid Patient is awake and reporting severe pain 8/10 to left leg/thigh. Administered Dilaudid as ordered and reviewed side effects, he verbalized understanding. He was encouraged to reposition and did.
[2021-02-06] MEDS: AMPICILLIN SODIUM/SULBACTAM NA 1.5 GM in NS 50 ML IV SCH ×4 (06:15→23:13)
--- NOTE | 2021-02-06 06:27 | NUR ---
Pain med / Dilaudid / Unasyn Patient is awake and reporting severe pain 7/10 to left leg/thigh. Administered Dilaudid as ordered and reviewed side effects, he verbalized understanding. Administered Unasyn, infusing well tolerating. He was reminded to work on IS while awake and he demonstrates inspiration of 4239-2361 ml.
[2021-02-06 07:45] LABS: INR 2.1 (0.80-1.20); PROTHROMBIN TIME 21.4 SECS (9.5-12.5)
--- NOTE | 2021-02-06 07:45 | NUR ---
Opening Notes Patient is awake, alert and oriented x4. No resp distress noted. Breathing is even and unlabored. Pt remains on RA at this time. Pt is c/o 11/06 left leg pain, 11/06, requesting pain meds. Administered [place] 5/325 mg at 0827, tolerated well. IV site on right hand 22 gauge intact at this time. D5NS @ 50 cc/hr, infusing well at this time. Pt remains on bedrest. Wound Vac in place on left inner leg, C/D/I. All needs met at this time. Safety and fall precautions in place. Bed in lowest position, locked. Will continue to monitor.
[2021-02-06 08:00] VITALS: BP_SYST 139
[2021-02-06] MEDS: LACTOBACILLUS RHAMNOSUS GG 1 CAP CAPSULE PO SCH ×2 (08:16→20:37)
[2021-02-06] MEDS: VERAPAMIL HCL 120 MG TABLET.SA PO SCH ×2 (08:16→20:38)
[2021-02-06] MEDS: FLECAINIDE ACETATE 50 MG TABLET (TAMBOCOR) PO SCH ×2 (08:17→20:37)
[2021-02-06] MEDS: HYDROcodone/ACETAMIN 5-325 MG TAB (NORCO/ VICODIN) PO PRN ×3 (08:27→22:04)
--- NOTE | 2021-02-06 08:27 | NUR ---
[place] 5/325 mg PO for pain Patient is c/o 8/10 left leg pain, requesting pain meds. Administered [place] 5/325 mg PO for pain, tolerated well. Will continue to monitor,.
[2021-02-06 10:12] LABS: BASOPHILS # (AUTO) 0.1 K/uL (0.0-0.2); BASOPHILS % (AUTO) 0.5 % (0.0-2.0); EOSINOPHILS # (AUTO) 0.2 K/uL (0.0-0.4); EOSINOPHILS % (AUTO) 1.6 % (0.0-4.0); HEMATOCRIT 33.6 % (36-54); HEMOGLOBIN 11.3 g/dL (14.0-18.0); LYMPHOCYTES # (AUTO) 0.5 K/uL (1.0-5.5); LYMPHOCYTES % (AUTO) 3.8 % (20.5-51.5); MEAN CORPUSCULAR HEMOGLOBIN 33 pg (27-31); MEAN CORPUSCULAR HGB CONC 34 % (32-36); MEAN CORPUSCULAR VOLUME 98 fL (79.0-98.0); MONOCYTES # (AUTO) 1.7 K/uL (0.0-1.0); MONOCYTES % (AUTO) 12.5 % (1.7-9.3); NEUTROPHILS # (AUTO) 11.1 K/uL (1.8-7.7); NEUTROPHILS % (AUTO) 81.6 % (40.0-70.0); PLATELET COUNT (AUTO) 256 K/uL (130-430); RED BLOOD CELL COUNT(AUTO) 3.42 MIL/uL (4.2-6.2); RED CELL DISTRIBUTION WIDTH 14.4 % (9.0-15.0); WHITE BLOOD COUNT (AUTO) 13.7 K/uL (4.8-10.8)
--- NOTE | 2021-02-06 10:15 | NUR ---
Notes Patient is asleep at this time. No resp distress noted. Breathing is even and unlabored. Pending wound vac dressing. Will continue to monitor.
--- NOTE | 2021-02-06 10:30 | NUR ---
Low Sodium Levels Notified Dr. House of low sodium levels of 127. MD House aware, no new orders.
[2021-02-06 11:28] VITALS: BP_SYST 121
[2021-02-06 15:20] VITALS: BP_SYST 123
--- NOTE | 2021-02-06 15:29 | NUR ---
WOUND RE-EVALUATION: Late note for 02/06/2021 at 1529 secondary to patient care. Patient received in a [place] Bed with an IsoFlex MORTEZA mattress, awake, alert, and oriented. Patient is able to turn in bed with some assist. Boone Score is a 16. Past Medical History: Hypertension, A-Fib, on Coumadin. Admitted for dog bite on left thigh. Intrinsic factors that delay wound healing: A-Fib, Hypoalbuminemia. Extrinsic factors that delay wound healing: Decreased mobility. Status post incision and drainage of left medial thigh hematoma performed by Dr. Tai on 01/30/2021. Wound Assessment: 1. Left Mid Medial Thigh: Dog bite wound from patient's own dog, present on admission. Post op wound bed has 90 percent dark red tissue with new granulation tissue, 10% black tissue. No odor, scant sanguineous drainage. 10% undermining present from (0.4 cm at 12 o'clock; 4.2 cm at 3 o'clock; 2.2 cm at 6 o'clock; 2.2 cm at 9 o'clock). Wound measures 5.2 cm x 3.0 cm x 2.5 cm. Surrounding area has very little rubor, mild calor and induration surrounding wound. Recommend continue: Cleanse wound with normal saline. Apply sure prep to periwound. Apply small black round granufoam dressing to wound bed. Cover Granufoam and wound site with VAC drape. Cut small hole into Vac drape and apply suction attachment. Attach suction tubing to wound VAC. Run wound VAC at 125 mmHg, continuous. Change VAC dressing q. M/W/F and as needed for dressing dislodgment. Also recommend continue: Encourage and assist patient as needed with repositioning every 2 hours with pillow support and off-load pressure areas with pillows for pressure re-distribution. Offload, elevate and float bilateral heels with pillows. Perform skin care and monitor skin integrity Q shift.
--- NOTE | 2021-02-06 16:00 | NUR ---
Wound Vac Dressing/Change Nurse assisted wound care nurseCRISTIN/RN with wound vac change. Pt was pre-medicated before wound vac dressing. Pt reports no pain at this time. Wound care pictures taken, in chart. Wound Vac in place. Pt tolerated wound vac change well. Will continue to monitor.
[2021-02-06] MEDS: D5NS 1,000 ML IV SCH (17:57)
[2021-02-06] MEDS: WARFARIN SODIUM 5 MG TABLET PO SCH (18:03)
--- NOTE | 2021-02-06 18:11 | NUR ---
Dietitian Recommendations : * Recommend to continue regular diet with Ensure 1 can BID, Hamzah 1 packet BID (provide additional of 800kcal, 45g protein). * Encourage PO intake Please refer to nutrition assessment for details.
--- NOTE | 2021-02-06 18:50 | NUR ---
Closing Notes Patient is awake, alert and oriented x4. No resp distress noted. Breathing is even and unlabored. Pt remains on RA at this time. Pt denies any pain at this time. Will have following RN follow up for pain management. IV site on right hand 22 gauge. D5NS @ 50 cc/hr, infusing well. IV ATB infusing well. Wound Vac dressing is C/D/I. NO signs of leaking at this time. Pt remains on bedrest. All needs met at this time. Safety and fall precautions in place. Bed in lowest position, alarm on, locked. Will continue to monitor.
--- NOTE | 2021-02-06 19:30 | NUR ---
Opening note Received report from day shift. Pt is resting in bed, no s/s of respiratory distress. Breathing is even and unlabored. IV site is intact and patent with fluids running at ordered rate. Wound vac dressing is clean, dry, intact with no leaking at this time. Fall and safety precautions are in place with bed in lowest position, bed alarm on, and call light within reach
[2021-02-06 20:00] VITALS: BP_SYST 153
--- NOTE | 2021-02-07 00:15 | NUR ---
Rounds Pt is sleeping. No s/s of acute distress. No needs at this time. Fall and safety precautions in place
[2021-02-07 00:23] VITALS: BP_SYST 132
[2021-02-07] MEDS: HYDROmorphone 2 MG/ML VIAL IVP PRN (03:29)
[2021-02-07] MEDS: AMPICILLIN SODIUM/SULBACTAM NA 1.5 GM in NS 50 ML IV SCH ×3 (05:53→18:07)
--- NOTE | 2021-02-07 06:50 | NUR ---
Closing note Pt resting in bed, no s/s of respiratory distress. Breathing even and unlabored. Wound vac dressing is clean and dry, draining. IV site is intact and patent with fluids running at ordered rate. Fall and safety precautions in place. All needs met throughout shift
[2021-02-07] MEDS: HYDROcodone/ACETAMIN 5-325 MG TAB (NORCO/ VICODIN) PO PRN ×3 (06:53→17:56)
--- NOTE | 2021-02-07 08:00 | NUR ---
OPENING NOTES: PATIENT EATING BREAKFAST. BREATHING EVEN AND NON LABORED TO RA. IV INFUSING WELL. FALL, SAFETY AND ASPIRATION PRECAUTION REINFORCED. CALL LIGHT WITHIN REACH. WILL CONTINUE MONITOR PATIENT.
[2021-02-07 08:01] VITALS: BP_SYST 131
[2021-02-07 09:37] LABS: INR 2.3 (0.80-1.20); PROTHROMBIN TIME 23.8 SECS (9.5-12.5)
[2021-02-07] MEDS: LACTOBACILLUS RHAMNOSUS GG 1 CAP CAPSULE PO SCH ×2 (10:26→20:39)
[2021-02-07] MEDS: VERAPAMIL HCL 120 MG TABLET.SA PO SCH ×2 (10:26→20:41)
[2021-02-07] MEDS: FLECAINIDE ACETATE 50 MG TABLET (TAMBOCOR) PO SCH ×2 (10:27→20:40)
[2021-02-07 11:27] VITALS: BP_SYST 137
--- NOTE | 2021-02-07 14:44 | NUR ---
[facility] wound [facility] form needs to be completed and signed and Faxed over to [employer] attn: Katelyn [phone]. If form is not received by the end of day. We will not be able to discharge patient. Wound vac must go for [facility] reviewed once approved they it may be delivered.
--- NOTE | 2021-02-07 14:54 | NUR ---
just called CM Miriam @ [facility], she indicated that they are still waiting for Dr Tai to sign the wound vac [employer] Form. Informed Miriam, that this order needs to go to for review and it usually takes a day or 2 so probably patient will not disharge until early next week. We cannot get a wound vac on weekends. Miriam said she will reach out to Dr. Tai to see if form sign
[2021-02-07] MEDS: D5NS 1,000 ML IV SCH (15:07)
[2021-02-07 15:11] VITALS: BP_SYST 156
--- NOTE | 2021-02-07 15:18 | NUR ---
Completed wound vac forms faxed to [facility] bilingual patient support caseworker
--- NOTE | 2021-02-07 15:36 | NUR ---
RN NOTES: PATIENT RESTING. NO S/S OF ACUTE DISTRESS NOTED. DUE MEDS GIVEN.
[2021-02-07] MEDS: WARFARIN SODIUM 5 MG TABLET PO SCH (18:14)
--- NOTE | 2021-02-07 18:58 | NUR ---
CLOSING NOTES: PATIENT RESTING IN BED. NO S/S OF ACUTE DISTRESS NOTED. BED LOCKED ALARM ON AND IN LOWEST POSITION. FALL, SAFETY AND ASPIRATION MEASURES RENDERED. CALL LIGHT WITHIN REACH.
[2021-02-07 20:00] VITALS: BP_SYST 136
--- NOTE | 2021-02-08 00:23 | NUR ---
Rounds Pt is sleeping. No s/s of acute distress. No needs at this time. Fall and safety precautions in place
[2021-02-08 00:24] VITALS: BP_SYST 151
[2021-02-08] MEDS: AMPICILLIN SODIUM/SULBACTAM NA 1.5 GM in NS 50 ML IV SCH ×5 (00:24→22:47)
[2021-02-08] MEDS: HYDROcodone/ACETAMIN 5-325 MG TAB (NORCO/ VICODIN) PO PRN ×5 (00:24→22:43)
--- NOTE | 2021-02-08 07:46 | NUR ---
OPENING NOTES: PATIENT RESTING IN BED. BREATHING EVEN AND NON LABORED TO RA. IV INFUSING WELL. FALL, SAFETY AND ASPIRATION PRECAUTION REINFORCED. CALL LIGHT WITHIN REACH. WILL CONTINUE MONITOR PATIENT.
[2021-02-08 07:53] LABS: INR 2.5 (0.80-1.20); PROTHROMBIN TIME 25.8 SECS (9.5-12.5)
[2021-02-08 08:01] VITALS: BP_SYST 138
[2021-02-08] MEDS ORDERED: AMOX-426 PO (09:31)
[2021-02-08 09:34] LABS: BASOPHILS # (AUTO) 0.1 K/uL (0.0-0.2); BASOPHILS % (AUTO) 0.5 % (0.0-2.0); EOSINOPHILS # (AUTO) 0.1 K/uL (0.0-0.4); HEMATOCRIT 33.4 % (36-54); HEMOGLOBIN 11.1 g/dL (14.0-18.0); LYMPHOCYTES # (AUTO) 0.5 K/uL (1.0-5.5); LYMPHOCYTES % (AUTO) 3.6 % (20.5-51.5); MEAN CORPUSCULAR HEMOGLOBIN 33 pg (27-31); MEAN CORPUSCULAR HGB CONC 33 % (32-36); MEAN CORPUSCULAR VOLUME 99 fL (79.0-98.0); MONOCYTES # (AUTO) 1.7 K/uL (0.0-1.0); MONOCYTES % (AUTO) 12.4 % (1.7-9.3); NEUTROPHILS # (AUTO) 11.2 K/uL (1.8-7.7); NEUTROPHILS % (AUTO) 82.5 % (40.0-70.0); PLATELET COUNT (AUTO) 292 K/uL (130-430); RED CELL DISTRIBUTION WIDTH 14.6 % (9.0-15.0); WHITE BLOOD COUNT (AUTO) 13.5 K/uL (4.8-10.8)
[2021-02-08 09:39] LABS: ANION GAP 6 (5-15); CALCIUM 8.5 mg/dL (8.4-11.0); CHLORIDE 103 mmol/L (98-107); CREATININE 0.84 mg/dL (0.55-1.30); GLUCOSE 123 mg/dL (70-99); POTASSIUM 3.8 mmol/L (3.5-5.1); SODIUM SERUM 137 mmol/L (136-145); UREA NITROGEN, BLOOD 31 mg/dL (8-21)
[2021-02-08] MEDS: LACTOBACILLUS RHAMNOSUS GG 1 CAP CAPSULE PO SCH ×2 (09:56→21:26)
[2021-02-08] MEDS: VERAPAMIL HCL 120 MG TABLET.SA PO SCH ×2 (09:56→21:26)
[2021-02-08] MEDS: FLECAINIDE ACETATE 50 MG TABLET (TAMBOCOR) PO SCH ×2 (09:57→22:44)
[2021-02-08 12:00] VITALS: BP_SYST 131
--- NOTE | 2021-02-08 14:27 | NUR ---
Wound vac has been approved, called [employer] confirmed with PATEL that order received , also spoke with manager [employer], waiting for ETA..
[2021-02-08] MEDS ORDERED: WARFARIN SODIUM 3 MG TABLET PO SCH (18:00)
--- NOTE | 2021-02-08 20:14 | NUR ---
RECIEVED PT FROM AM NURSE TU. PTIS AOX4, USUALLY AMBULATORY. ADMITTED FOR DOG BITE. PT VSS, ABLE TO ARTICULATE NEEDS. PT IS ACCESSIBLE, AND UNDERSTAND OUTPATIENT CARE. LUNGS ARE CLEAR, WITH LITTLE DISCOMFORT FROM WOUND. WOUND DRESSING WILL BE CHANGE VIA WOUND NURSE, AWARE. PT IS TO BE DC HOME, AWAITING HOME HEALTH. WILL CONTINUE TO MONITOR THROUGHOUT HE NIGHT.
[2021-02-08 21:19] VITALS: BP_SYST 131
[2021-02-08 21:20] VITALS: BP_SYST 131
[2021-02-09] VITALS: BP_SYST 134
[2021-02-09] MEDS: HYDROcodone/ACETAMIN 5-325 MG TAB (NORCO/ VICODIN) PO PRN ×2 (02:55→21:18)
[2021-02-09] MEDS: AMPICILLIN SODIUM/SULBACTAM NA 1.5 GM in NS 50 ML IV SCH ×3 (05:21→18:55)
[2021-02-09 08:49] LABS: INR 2.9 (0.80-1.20); PROTHROMBIN TIME 29.9 SECS (9.5-12.5)
[2021-02-09] MEDS: FLECAINIDE ACETATE 50 MG TABLET (TAMBOCOR) PO SCH ×2 (09:35→21:20)
[2021-02-09] MEDS: LACTOBACILLUS RHAMNOSUS GG 1 CAP CAPSULE PO SCH ×2 (09:36→21:21)
[2021-02-09] MEDS: VERAPAMIL HCL 120 MG TABLET.SA PO SCH ×2 (09:37→21:19)
[2021-02-09 16:05] VITALS: BP_SYST 146
--- NOTE | 2021-02-09 16:14 | NUR ---
DISCHARGE PLANNING SW WITH LYDIA, [employer] TECHNICAL DEVELOPER WHO CONFIRMED THAT [facility] WILL DELIVER WOUND VAC TODAY BETWEEN 2PM AND 6PM. LYDIA ALSO STATED THAT PATIENT'S HOME HEALTH ( [facility] [phone]) WILL BE SEE PATIENT TOMORROW. PER OLENA, IF MD CLEARED THE PATIENT TO GO HOME TONIGHT ONCE VAC IS DELIVERED AND HOME HEALTH WILL START TOMORROW, PATIENT CAN GO HOME. S/W DR MEJÍA, DR MEJÍA IS OKAY TO DISCHARGE THE PATIENT ONCE VAC DELIVERED AND HOME HEALTH TO SEE TOMORROW. UPDATED DAUGHTER LOBITO OF PLAN OF CARE
[2021-02-09] MEDS ORDERED: WARFARIN SODIUM 2.5 MG TABLET PO SCH (18:00)
--- NOTE | 2021-02-09 19:57 | NUR ---
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
[2021-02-09 20:00] VITALS: BP_SYST 142
[2021-02-10 00:10] VITALS: BP_SYST 130
[2021-02-10] MEDS: AMPICILLIN SODIUM/SULBACTAM NA 1.5 GM in NS 50 ML IV SCH ×2 (00:10→05:02)
[2021-02-10] MEDS: HYDROcodone/ACETAMIN 5-325 MG TAB (NORCO/ VICODIN) PO PRN (03:25)
[2021-02-10 07:53] LABS: INR 2.8 (0.80-1.20); PROTHROMBIN TIME 28.6 SECS (9.5-12.5)
[2021-02-10 09:27] VITALS: BP_SYST 158
[2021-02-10] MEDS ORDERED: HYDR-3917 PO (09:32)
[2021-02-10] MEDS: LACTOBACILLUS RHAMNOSUS GG 1 CAP CAPSULE PO SCH (10:13)
[2021-02-10] MEDS: VERAPAMIL HCL 120 MG TABLET.SA PO SCH (10:13)
[2021-02-10] MEDS: FLECAINIDE ACETATE 50 MG TABLET (TAMBOCOR) PO SCH (10:15)
== END 2021-02-10 12:27 | disposition home health service (06) | DRG 580 ==
LOC: SED 00:37 → SMU 05:32
PROVIDERS: ADMIT Internal Medicine Hospice and Palliative Medicine; ATTEND Internal Medicine Hospice and Palliative Medicine
PROC: 0JCM0ZZ Extirpation of Matter from Left Upper Leg Subcutaneous Tissue and Fascia, Open Approach (ICD-10-PCS; principal; 2021-01-30 17:03)
DX: L03.116 Cellulitis of left lower limb (principal); D68.9 Coagulation defect, unspecified; L02.416 Cutaneous abscess of left lower limb; I48.91 Unspecified atrial fibrillation; I10 Essential (primary) hypertension; Z20.822 Contact with and (suspected) exposure to COVID-19; S71.152A Open bite, left thigh, initial encounter; N40.0 Benign prostatic hyperplasia without lower urinary tract symptoms; S70.12XA Contusion of left thigh, initial encounter; W54.0XXA Bitten by dog, initial encounter; Y93.89 Activity, other specified; Y92.89 Other specified places as the place of occurrence of the external cause; Y99.8 Other external cause status; Z79.01 Long term (current) use of anticoagulants; Z88.1 Allergy status to other antibiotic agents
CPT/HCPCS: 36415; 80048; 80053; 83605; 85025; 85610-TC; 85730-TC; 87040-TC; 87070; 87070-TC; 87075-TC; 87081; 88304; 93971; 96365; 99285; J0295; J1170; J2270; J2543; J2704; J3010; J3490; J7060; J7120